=== PATIENT | male | born 1935 | race Two or more races ===

== ENCOUNTER → 2017-11-08 | Outpatient (CLI) | payer MEDICARE, OTHER ==
[~2017-11-08] MED LIST: ELMIRON PO; Ex-Lax15 MG PO; Flonase 0.05% N16 GM; HYDACE7.5 PO; LOSA25; OXYACE5T PO; PRED20 PO; SIMV40 PO; VICODIN ES 7.51 EACH PO
== END | disposition home or self-care (01) ==
LOC: PLD 13:30 → LAB SHORT 13:30
DX: L90.5 Scar conditions and fibrosis of skin (principal); L57.8 Other skin changes due to chronic exposure to nonionizing radiation; C44.42 Squamous cell carcinoma of skin of scalp and neck
CPT/HCPCS: 88305

== ENCOUNTER 2018-03-30 07:48 | Day surgery (SDC) | payer MEDICARE, OTHER ==
[~2018-03-30] VITALS: Ht 175.3 cm; Wt 91.5 kg
== END 2018-03-30 09:22 | disposition home or self-care (01) ==
LOC: ORSCSDS 07:48
PROVIDERS: Anesthesiology
PROC: 3E0R33Z Introduction of Anti-inflammatory into Spinal Canal, Percutaneous Approach (ICD-10-PCS; principal; 2018-03-30 09:00)
DX: M96.1 Postlaminectomy syndrome, not elsewhere classified (principal); M54.16 Radiculopathy, lumbar region; I10 Essential (primary) hypertension; E78.00 Pure hypercholesterolemia, unspecified; G47.33 Obstructive sleep apnea (adult) (pediatric); M06.9 Rheumatoid arthritis, unspecified; Z79.899 Other long term (current) drug therapy
CPT/HCPCS: J1040

== ENCOUNTER 2019-01-03 09:07 | Day surgery (SDC) | payer MEDICARE, OTHER ==
[~2019-01-03] VITALS: Ht 175.3 cm; Wt 91.6 kg
[~2019-01-03 09:07] MED LIST changes: +GABA100 PO; -LOSA25; +LOSA25 PO
--- NOTE | 2019-01-03 11:26 | NUR ---
01/03/19 1126 Mike Hoyt NURSE ASSISTED PATIENT WALK OUT TO HIS RIDE HOME.
== END 2019-01-03 11:18 | disposition home or self-care (01) ==
LOC: ORSCSDS 09:07
PROVIDERS: Internal Medicine Gastroenterology
PROC: 0DBL8ZX Excision of Transverse Colon, Via Natural or Artificial Opening Endoscopic, Diagnostic (ICD-10-PCS; principal; 2019-01-03 10:15)
PROC: 0DBH8ZX Excision of Cecum, Via Natural or Artificial Opening Endoscopic, Diagnostic (ICD-10-PCS; principal; 2019-01-03 10:15)
PROC: 0DBC8ZX Excision of Ileocecal Valve, Via Natural or Artificial Opening Endoscopic, Diagnostic (ICD-10-PCS; principal; 2019-01-03 10:15)
DX: Z12.11 Encounter for screening for malignant neoplasm of colon (principal); D12.0 Benign neoplasm of cecum; D12.3 Benign neoplasm of transverse colon; Z86.010 Personal history of colon polyps; K57.30 Diverticulosis of large intestine without perforation or abscess without bleeding; G47.33 Obstructive sleep apnea (adult) (pediatric); E78.5 Hyperlipidemia, unspecified; E66.9 Obesity, unspecified; Z87.891 Personal history of nicotine dependence; Z68.31 Body mass index [BMI] 31.0-31.9, adult; Z79.899 Other long term (current) drug therapy
CPT/HCPCS: 85014; 88305; J7120

== ENCOUNTER 2019-02-16 13:28 | Emergency (ER) | payer MEDICARE, OTHER ==
[~2019-02-16] VITALS: Ht 167.6 cm; Wt 90.7 kg
[2019-02-16] MEDS ORDERED: GABA100 PO (15:09)
[2019-02-16] MEDS ORDERED: LOSA25 PO (15:10)
[2019-02-16] MEDS ORDERED: CEPH500 PO (15:56)
== END 2019-02-16 16:16 | disposition home or self-care (01) ==
LOC: ER 13:28
DX: S51.811A Laceration without foreign body of right forearm, initial encounter (principal); S46.211A Strain of muscle, fascia and tendon of other parts of biceps, right arm, initial encounter; W22.8XXA Striking against or struck by other objects, initial encounter; Z88.8 Allergy status to other drugs, medicaments and biological substances; Z88.1 Allergy status to other antibiotic agents; Z79.899 Other long term (current) drug therapy
CPT/HCPCS: 71101; 99283-25

== ENCOUNTER 2019-04-02 06:54 | Emergency (ER) | payer MEDICARE, OTHER ==
[~2019-04-02] VITALS: Ht 175.3 cm; Wt 90.7 kg
[~2019-04-02 06:54] MED LIST changes: +CEPH500 PO
[2019-04-02] MEDS ORDERED: LOSARTAN POTASS50 MG PO (07:34)
[2019-04-02] MEDS ORDERED: OMEPRAZOLE20 MG PO (07:35)
[2019-04-02] MEDS ORDERED: Robaxin500 MG PO (09:07)
== END 2019-04-02 10:00 | disposition home or self-care (01) ==
LOC: ER 06:54
DX: S22.31XA Fracture of one rib, right side, initial encounter for closed fracture (principal); W01.198A Fall on same level from slipping, tripping and stumbling with subsequent striking against other object, initial encounter; Z88.8 Allergy status to other drugs, medicaments and biological substances; Z88.1 Allergy status to other antibiotic agents; Z79.899 Other long term (current) drug therapy
CPT/HCPCS: 71101; 99283-25

== ENCOUNTER → 2019-08-02 | Outpatient (CLI) | payer MEDICARE, OTHER ==
[~2019-08-02] MED LIST changes: +LOSARTAN POTASS50 MG PO; +OMEPRAZOLE20 MG PO; +Robaxin500 MG PO
== END | disposition home or self-care (01) ==
LOC: LAB SHORT 07:34 → PLD 07:34
DX: D48.5 Neoplasm of uncertain behavior of skin (principal)
CPT/HCPCS: 88305

== ENCOUNTER 2019-10-11 07:01 | Day surgery (SDC) | payer MEDICARE, OTHER ==
[~2019-10-11] VITALS: Ht 175.3 cm; Wt 98.2 kg
== END 2019-10-11 08:10 | disposition home or self-care (01) ==
LOC: ORSCSDS 07:01
PROVIDERS: Anesthesiology
PROC: 3E0R33Z Introduction of Anti-inflammatory into Spinal Canal, Percutaneous Approach (ICD-10-PCS; principal; 2019-10-11 08:00)
DX: M96.1 Postlaminectomy syndrome, not elsewhere classified (principal); M54.16 Radiculopathy, lumbar region; I10 Essential (primary) hypertension; G47.33 Obstructive sleep apnea (adult) (pediatric); E78.00 Pure hypercholesterolemia, unspecified; M06.9 Rheumatoid arthritis, unspecified; Z79.899 Other long term (current) drug therapy
CPT/HCPCS: J1040

== ENCOUNTER 2019-11-08 08:22 | Day surgery (SDC) | payer MEDICARE, OTHER ==
[~2019-11-08] VITALS: Ht 175.3 cm; Wt 93.5 kg
== END 2019-11-08 09:49 | disposition home or self-care (01) ==
LOC: ORSCSDS 08:22
PROVIDERS: Anesthesiology
PROC: 3E0R33Z Introduction of Anti-inflammatory into Spinal Canal, Percutaneous Approach (ICD-10-PCS; principal; 2019-11-08 09:15)
DX: M96.1 Postlaminectomy syndrome, not elsewhere classified (principal); M54.16 Radiculopathy, lumbar region; G47.33 Obstructive sleep apnea (adult) (pediatric); I10 Essential (primary) hypertension; E78.00 Pure hypercholesterolemia, unspecified; M06.9 Rheumatoid arthritis, unspecified; E66.9 Obesity, unspecified; Z68.30 Body mass index [BMI] 30.0-30.9, adult; Z79.899 Other long term (current) drug therapy
CPT/HCPCS: J1040

== ENCOUNTER 2020-08-06 11:08 | Day surgery (SDC) | payer MEDICARE, OTHER ==
[~2020-08-06] VITALS: Wt 92.4 kg
[~2020-08-06 11:08] MED LIST changes: +LOSA50 PO; +Norco 7.5-3251 EACH PO; +Zocor40 MG PO
== END 2020-08-06 12:15 | disposition home or self-care (01) ==
LOC: ORSCSDS 11:08
PROVIDERS: Anesthesiology
PROC: 3E0R33Z Introduction of Anti-inflammatory into Spinal Canal, Percutaneous Approach (ICD-10-PCS; principal; 2020-08-06 12:15)
DX: M54.16 Radiculopathy, lumbar region (principal); G47.33 Obstructive sleep apnea (adult) (pediatric); I10 Essential (primary) hypertension; E78.00 Pure hypercholesterolemia, unspecified; Z79.899 Other long term (current) drug therapy
CPT/HCPCS: J1040; J2001

== ENCOUNTER → 2021-08-13 | Outpatient (CLI) | payer MEDICARE, OTHER | LOC: LAB SHORT 11:31 → LAB 11:31 | DX: D48.5 Neoplasm of uncertain behavior of skin (principal); D04.72 Carcinoma in situ of skin of left lower limb, including hip; Z88.8 Allergy status to other drugs, medicaments and biological substances | CPT/HCPCS: 88305 ==

== ENCOUNTER 2021-11-09 09:52 | Day surgery (SDC) | payer MEDICARE, OTHER ==
[~2021-11-09] VITALS: Ht 175.3 cm; Wt 94.1 kg
== END 2021-11-09 11:42 | disposition home or self-care (01) ==
LOC: ORSCSDS 09:52
PROVIDERS: Anesthesiology
PROC: 3E0R33Z Introduction of Anti-inflammatory into Spinal Canal, Percutaneous Approach (ICD-10-PCS; principal; 2021-11-09 11:00)
DX: M96.1 Postlaminectomy syndrome, not elsewhere classified (principal); M54.16 Radiculopathy, lumbar region; I10 Essential (primary) hypertension; E78.00 Pure hypercholesterolemia, unspecified; G47.33 Obstructive sleep apnea (adult) (pediatric); M06.9 Rheumatoid arthritis, unspecified; Z79.899 Other long term (current) drug therapy
CPT/HCPCS: J1040

== ENCOUNTER 2022-06-07 12:17 | Day surgery (SDC) | payer MEDICARE, OTHER ==
[~2022-06-07] VITALS: Ht 175.3 cm; Wt 91.4 kg
== END 2022-06-07 14:20 | disposition home or self-care (01) ==
LOC: ORSCSDS 12:17
PROVIDERS: Anesthesiology
PROC: 3E0R33Z Introduction of Anti-inflammatory into Spinal Canal, Percutaneous Approach (ICD-10-PCS; principal; 2022-06-07 14:15)
DX: M96.1 Postlaminectomy syndrome, not elsewhere classified (principal); M54.16 Radiculopathy, lumbar region; G47.33 Obstructive sleep apnea (adult) (pediatric); E78.00 Pure hypercholesterolemia, unspecified; I10 Essential (primary) hypertension; Z79.899 Other long term (current) drug therapy
CPT/HCPCS: J1040

== ENCOUNTER 2022-07-14 13:22 | Day surgery (SDC) | payer MEDICARE, OTHER ==
[~2022-07-14] VITALS: Ht 177.8 cm; Wt 93.1 kg
== END 2022-07-14 14:38 | disposition home or self-care (01) ==
LOC: ORSCSDS 13:22
PROVIDERS: Anesthesiology
PROC: 3E0R33Z Introduction of Anti-inflammatory into Spinal Canal, Percutaneous Approach (ICD-10-PCS; principal; 2022-07-14 15:00)
DX: M54.16 Radiculopathy, lumbar region (principal); G47.33 Obstructive sleep apnea (adult) (pediatric); E78.00 Pure hypercholesterolemia, unspecified; I10 Essential (primary) hypertension; M06.9 Rheumatoid arthritis, unspecified; Z79.899 Other long term (current) drug therapy
CPT/HCPCS: J1040

== ENCOUNTER 2023-03-10 16:51 | Inpatient (IN) | payer MEDICARE, OTHER ==
[~2023-03-10] VITALS: Ht 175.3 cm; Wt 86.3 kg
[~2023-03-10 16:51] MED LIST changes: +CEFD300 PO; +CELEBREX200 MG PO; +CYCL10 PO; +OMEPRAZOLE20 M1 PO
[2023-03-10 17:48] LABS: BASOPHILS ABSOLUTE AUTO 0.03 K/mm3 (0.00-0.23); BASOPHILS PERCENT AUTO 0 % (0-2); EOSINOPHILS ABSOLUTE AUTO 0.03 K/mm3 (0.00-0.68); EOSINOPHILS PERCENT AUTO 0 % (0-6); Hematocrit 32.8 % (37.0-53.0); Hemoglobin 10.5 g/dL (13.5-17.5); IMMATURE GRAN ABSOLUTE AUTO 0.15 K/mm3 (0.00-0.10); IMMATURE GRAN PERCENT AUTO 1 % (0-1); LYMPHOCYTES ABSOLUTE AUTO 2.09 K/mm3 (0.84-5.20); LYMPHOCYTES PERCENT AUTO 13 % (21-46); MONOCYTES ABSOLUTE AUTO 1.53 K/mm3 (0.16-1.47); MONOCYTES PERCENT AUTO 9 % (4-13); Mean Corpuscular HGB 29.9 pg (26.0-34.0); Mean Corpuscular Volume 93 fL (80-100); Mean Platelet Volume 9.8 fL (9.1-12.4); NEUTROPHILS ABSOLUTE AUTO 12.74 K/mm3 (1.96-9.15); NEUTROPHILS PERCENT AUTO 77 % (41-73); NRBC ABSOLUTE 0.03 K/mm3 (0.00-0.02); NRBC Auto 0.2 /100 WBC (0.0-0.2); Platelet Count 291 K/mm3 (150-400); RDW Coefficient Variation 18.7 % (11.7-14.2); RDW Standard Deviation 63.5 fL (35.1-46.3); Red Blood Cell Count 3.51 M/mm3 (4.30-5.90); White Blood Cell Count 16.57 K/mm3 (4.00-11.30)
[2023-03-10 18:19] LABS: Albumin, Blood 2.4 g/dL (3.4-5.0); Albumin/Globulin Ratio 0.5 (0.8-1.8); Bilirubin, Total 0.8 mg/dL (0.1-1.0); Bun/Creatinine Ratio 25.1 (12.0-20.0); Calcium, Blood 8.5 mg/dL (8.5-10.1); Creatinine, Blood 0.88 mg/dL (0.60-1.20); Globulin, Blood 4.5 g/dL (2.2-4.0); Potassium, Blood 4.5 mmol/L (3.5-5.5); Total Protein, Blood 6.9 g/dL (6.4-8.2)
[2023-03-11 00:54] VITALS: BP 149/56
[2023-03-11 05:44] LABS: BASOPHILS ABSOLUTE AUTO 0.03 K/mm3 (0.00-0.23); BASOPHILS PERCENT AUTO 0 % (0-2); EOSINOPHILS ABSOLUTE AUTO 0.01 K/mm3 (0.00-0.68); EOSINOPHILS PERCENT AUTO 0 % (0-6); Hematocrit 29.4 % (37.0-53.0); Hemoglobin 9.4 g/dL (13.5-17.5); IMMATURE GRAN ABSOLUTE AUTO 0.12 K/mm3 (0.00-0.10); IMMATURE GRAN PERCENT AUTO 1 % (0-1); LYMPHOCYTES ABSOLUTE AUTO 2.04 K/mm3 (0.84-5.20); LYMPHOCYTES PERCENT AUTO 14 % (21-46); MONOCYTES ABSOLUTE AUTO 1.56 K/mm3 (0.16-1.47); MONOCYTES PERCENT AUTO 11 % (4-13); Mean Corpuscular HGB 30.2 pg (26.0-34.0); Mean Corpuscular Volume 95 fL (80-100); Mean Platelet Volume 10.8 fL (9.1-12.4); NEUTROPHILS ABSOLUTE AUTO 11.13 K/mm3 (1.96-9.15); NEUTROPHILS PERCENT AUTO 75 % (41-73); NRBC ABSOLUTE 0.02 K/mm3 (0.00-0.02); NRBC Auto 0.1 /100 WBC (0.0-0.2); Platelet Count 230 K/mm3 (150-400); RDW Coefficient Variation 18.9 % (11.7-14.2); RDW Standard Deviation 64.9 fL (35.1-46.3); Red Blood Cell Count 3.11 M/mm3 (4.30-5.90); White Blood Cell Count 14.89 K/mm3 (4.00-11.30)
[2023-03-11 06:08] LABS: Albumin, Blood 1.9 g/dL (3.4-5.0); Albumin/Globulin Ratio 0.5 (0.8-1.8); Bilirubin, Total 0.6 mg/dL (0.1-1.0); Bun/Creatinine Ratio 21.9 (12.0-20.0); Creatinine, Blood 0.82 mg/dL (0.60-1.20); Globulin, Blood 4.1 g/dL (2.2-4.0); Potassium, Blood 4.7 mmol/L (3.5-5.5)
[2023-03-11 06:29] LABS: Source, Urine Clean Catch
[2023-03-11 06:43] LABS: Appearance, Urine Clear (Clear); Bilirubin, Urine Neg (Neg); Blood, Urine 1+ (Neg); Color, Urine Yellow (P-Yellow); Glucose Qualitative, Urine Neg (Neg); Ketones, Urine Neg (Neg); Leukocyte Esterase, Urine Neg (Neg); Nitrite, Urine Neg (Neg); Protein, Urine Neg (Neg); Specific Gravity, Urine 1.015 (1.003-1.022); Urobilinogen, Urine NORM (Normal)
[2023-03-11 06:54] LABS: Bacteria Not Seen /hpf; Red Blood Cells, Urine 0-2 /hpf (0-2); Squamous Epithelial Cells Few /hpf (Few); White Blood Cells, Urine 0-2 /hpf (0-5)
[2023-03-11 07:35] VITALS: BP 136/56
[2023-03-11 13:49] LABS: International Normalized Ratio 1.15
[2023-03-11 15:52] VITALS: BP 146/56
--- NOTE | 2023-03-11 17:23 | NUR ---
SHIFT SUMMARY- NO ACUTE EVENTS THIS SHIFT. PT AAOX3-4. SBA. MILD BACK CARI NCONTROLLED WITH TYLENOL.
[2023-03-11 19:29] VITALS: BP 160/54
--- NOTE | 2023-03-12 00:47 | NUR ---
START OF SHIFT THIS STUDENT NURSE ASSUMED CARE OF PT AT 1900 UNDER THE OBSERVATION OF NURSE ELMER BUENO. PT DAUGHTER AT BEDSIDE. PT A&O X4. BP ELEVATED, WILL MONITOR FOR S/S. REMAINING VS WNL. PT'S LOWER LUNG CROUCH DIMINISHED. ORDERED ANTIBIOTICS ADMINISTERED VIA IV INFUSION, PT REPORTS NAUSEA WITH ADMINISTRATION OF AZITHROMYCIN. IV ZOFRAN ADMINISTERED, INTERVENTION SUCCESSFUL EVIDENCED BY THE PT'S VERBALIZTION OF DECREASED NAUSEA. PT LEFT IN A STATE OF COMFORT AND SAFETY WITH BED IN LOW POSITION, BREAKS LOCKED, ROOM CLEAR OF DEBRIS, BED RAILS RAISED, AND CALL LIGHT WITHIN REACH. WILL CONTINUE TO MONITOR.
--- NOTE | 2023-03-12 04:43 | NUR ---
SHIFT SUMMARY THIS STUDENT NURSE ADRESSED THE PT'S PNEUMONIA BY ADMINISTERING THE PRESCRIBED ANTIBIOTICS AND ASSESSING FOR S/S OF WORSENING INFECTION. THIS STUDENT NURSE ADDRESSED THE PT'S NAUSEA FOLLOWING ADMINISTRATION OF AZITHROMYCIN BY ADMINISTERING THE PRESCRIBED ZOFRAN. PT AMBULATED WITH STANDBY ASSISTANCE, CONTINENT WITH URINAL AT BEDSIDE. PT A&O X4. PT VSS. PT SLEPT THROUGH SHIFT AFTER ANTIBIOTICS INFUSIONS COMPLETED. PT'S PAIN MANAGED THROUGHOUT THE SHIFT UTELIZING PHARMACOLOGICAL AND NONPHARMACOLOGICAL INTERVENTIONS. PT REMAINS IN A POSITION OF COMFORT AND SAFETY. WILL CONTINUE TO MONITOR PT THROUGHOUT MY SHIFT.
[2023-03-12 04:44] VITALS: BP 136/57
[2023-03-12 05:11] LABS: Hemoglobin 8.8 g/dL (13.5-17.5); Mean Corpuscular HGB 30.7 pg (26.0-34.0); Mean Corpuscular HGB Conc 32.6 g/dL (31.5-36.5); Mean Corpuscular Volume 94 fL (80-100); Platelet Count 232 K/mm3 (150-400); RDW Coefficient Variation 18.8 % (11.7-14.2); RDW Standard Deviation 65.3 fL (35.1-46.3); Red Blood Cell Count 2.87 M/mm3 (4.30-5.90); White Blood Cell Count 10.95 K/mm3 (4.00-11.30)
[2023-03-12 05:43] LABS: Percent Saturation 11.6 % (20.0-50.0)
--- NOTE | 2023-03-12 05:58 | NUR ---
CTA/PLUMBER MAINTENANCE I HAVE READ THIS PLUMBER MAINTENANCE'S DOCUMENTATION AND I AGREE. SHIFT SUMMARY LOCATED UNDER PLUMBER MAINTENANCE NOTE
[2023-03-12 07:09] VITALS: BP 139/54
--- NOTE | 2023-03-12 08:56 | NUR ---
pt laying in bed awake a/ox4, pleasant and cooperative with care, follows commands well, denies pain at this time, lungs are clear on left side all mar, can auscultate breath sounds in upper mar dim in mid and base, no cough noted, on 2 liters at hs, not during the day, hrr, ppp+2, cap refill <3sec, vs stable, afebrile, piv to rac site is clear and patent, btx4, reports reg bm and voids, skin c/w/d, li, shaun, call light in reach.
[2023-03-12 13:30] LABS: Automated BF RBC Count 0.022 M/mm3 (0-0)
[2023-03-12 13:46] LABS: Protein, Body Fluid 4.4 g/dL
[2023-03-12 13:58] LABS: RBC Count, Body Fluid 22000 /mm3 (0-0)
[2023-03-12 13:59] LABS: Body Fluid WBC Count 30930 /mm3 (0-999)
[2023-03-12 14:04] LABS: Appearance, Body Fluid Cloudy (Clear); Color, Body Fluid Yellow (None-Yellow)
[2023-03-12 14:11] LABS: Total Cell Count, Body Fluid 100
[2023-03-12 15:16] VITALS: BP 152/64
--- NOTE | 2023-03-12 18:49 | NUR ---
pt has had some nausia today, Dr. Ratliff changed the abx, jono given, having MRI at this time, family in to see him, has had bad back pain after thorocentesis. no further changes this shift. call light in reach.
[2023-03-12 19:39] VITALS: BP 161/65
[2023-03-13 03:50] VITALS: BP 157/60
--- NOTE | 2023-03-13 04:24 | NUR ---
SHIFT SUMMARY ADMITTED FOR BACK PAIN/PNEUMONIA. FULL CODE. PO ANTIB RX ARE SCHEDULED. MRI OF THE BACK PERFORMED AT BEGINNING OF SHIFT. I DID MEDICATE FOR BACK PAIN AND NAUSEA ONE TIME THIS SHIFT. THORACENTESIS PERFORMED ON PREVIOUS SHIFT WITH REPORTEDLY LITTLE EFFECT. 2 LPM O2 @ HS, PRN IS BASELINE HE IS NONCOMPLIANT WITH BIPAP. HX: CHRONIC BACK PAIN, CAMILA, FAILED OUTPT ANTIB AND STEROID RX TX.
[2023-03-13 07:25] VITALS: BP 143/47
--- NOTE | 2023-03-13 08:35 | NUR ---
pt laying in bed awake, states he had a rough night with his stomach hurting and nausea not vomiting. a/ox4, pleasant and cooperative with care, follows commands well, reports back pain and stomach pain as well, states the norco isn't enough for the back pain, but because he is nauseated he wants to hold off on the pain pill, lungs are dim on right side clear on left, on r/a, resp even and unlabored, no cough noted, using 2 liters 02 at hs, on r/a now, hrr, no edema noted, ppp+1, cap refill<3sec, vs stable, afebrile, iv site to rac is hurting a bit with use, will replace today, zofran administred, btx4, abd flat soft tender, voids without diff, skin c/w/d, shaun jefferson, call light in reach.
[2023-03-13 15:05] VITALS: BP 145/60
--- NOTE | 2023-03-13 18:03 | NUR ---
pt started the day not doing well, medications were changed, and added a muscle relaxant, he ambulated out in the [place] and states he's feeling much better, much more relaxed, no further changes this shift. call light in reach.
[2023-03-13 19:53] VITALS: BP 147/51
[2023-03-14 04:08] VITALS: BP 144/61
--- NOTE | 2023-03-14 04:27 | NUR ---
DISPLAY DESIGNER SUMMARY NO ACUTE EVENTS THIS SHIFT. A&OX4 WITH TRANSIENT CONFUSION. PATIENT EFFECTIVELY COMMUNICATES NEEDS. VSS. RR EVEN AND UNLABORED ON RA. PAIN ASSESSED AND MEDICATED PER EMAR. PATIENT NOTED TO SLEEP WELL THROUGHOUT THE NIGHT WITH MINIMAL CONCERNS. BED LOW AND LOCKED. CALL LIGHT WITHIN REACH. THIS RN WILL CONTINUE TO MONITOR.
[2023-03-14 05:43] LABS: Hematocrit 28.9 % (37.0-53.0); Hemoglobin 9.2 g/dL (13.5-17.5); Mean Corpuscular HGB 29.7 pg (26.0-34.0); Mean Corpuscular HGB Conc 31.8 g/dL (31.5-36.5); Mean Corpuscular Volume 93 fL (80-100); Mean Platelet Volume 9.7 fL (9.1-12.4); NRBC ABSOLUTE 0.02 K/mm3 (0.00-0.02); NRBC Auto 0.3 /100 WBC (0.0-0.2); Platelet Count 256 K/mm3 (150-400); RDW Coefficient Variation 18.3 % (11.7-14.2); RDW Standard Deviation 63.2 fL (35.1-46.3); White Blood Cell Count 7.82 K/mm3 (4.00-11.30)
[2023-03-14 06:20] LABS: Bun/Creatinine Ratio 23.4 (12.0-20.0); Creatinine, Blood 0.9 mg/dL (0.60-1.20); Potassium, Blood 4.5 mmol/L (3.5-5.5)
[2023-03-14 07:51] VITALS: BP 141/60
--- NOTE | 2023-03-14 09:00 | NUR ---
PT QUITE PLEASANT COOP TALKATIVE, A/O X3. DENIES PAIN AT THIS TIME. H/R REG, NO MURMUR NOTED. NO EDEMA NOTED. LUNGS CLEAR ON LEFT, DIM ON LOW RIGHT. ON R/A DAYS, 2L N/C AT NITE FOR CAMILA. BT X4 LAST BM COUPLE DAYS PER PT, STATES FEELS READY TODAY. VOIDS URINAL AND 1 ASST OR SBA TO BATHROOM. NO NEW CONCERNS NOTED. BED IN LOW POSITION, CALL LITE IN REACH, CALLS APPROP
[2023-03-14 14:49] VITALS: BP 145/55
--- NOTE | 2023-03-14 18:38 | NUR ---
PT QUITE PLEASANT TODAY. EXPECTING TO WAIT FOR RESULTS OF SAMPLE TO GROW OUT TOMORROW. HOPING TO FIND APPROP ABX TO RESOLVE. STATES WILL BE ASKING DR FOR BEST COARSE OF ACTION FOR LUNG TO HEAL. CONTINUES TO AMBULATE SBA APPROP. FAMILY IN TO SEE TODAY. NO NEW CONCERNS NOTED. BED IN LOW POSITION, CALLLITE IN REACH, CALLS APPROP
[2023-03-14 19:55] VITALS: BP 151/56
[2023-03-15 03:11] VITALS: BP 122/73
--- NOTE | 2023-03-15 04:15 | NUR ---
PRIVATE PILOT SUMMARY NO ACUTE EVENTS THIS SHIFT. A&OX4. PATIENT EFFECTIVELY COMMUNICATES NEEDS. VSS. RR EVEN AND UNLABORED AT REST. EXERTIONAL DYSPNEA NOTED. PAIN ASSESSED AND MEDICATED PER EMAR. PATIENT NOTED TO SLEEP WELL THROUGHOUT THE NIGHT. BED LOW AND LOCKED. CALL LIGHT WITHIN REACH. THIS RN WILL CONTINUE TO MONITOR.
[2023-03-15 08:50] VITALS: BP 149/55
[2023-03-15] MEDS ORDERED: OXYC5 PO (11:34)
[2023-03-15] MEDS ORDERED: AMOX875 PO (11:35)
--- NOTE | 2023-03-15 12:24 | NUR ---
DC- PT LEFT IN WC WITH IN STABLE CONDITION WITH ALL BELONGINGS.
== END 2023-03-15 12:01 | disposition home or self-care (01) | DRG 871 ==
LOC: ER 16:51 → MEDS 16:52 → ENPENDDIS 03-15 10:38 → MEDS 03-15 12:01
PROVIDERS: Internal Medicine; Physician Assistant; Student in an Organized Health Care Education/Training Program; ADMIT Internal Medicine
PROC: 0W9930Z Drainage of Right Pleural Cavity with Drainage Device, Percutaneous Approach (ICD-10-PCS; principal; 2023-03-12)
DX: A41.9 Sepsis, unspecified organism (principal); J18.9 Pneumonia, unspecified organism; J90 Pleural effusion, not elsewhere classified; J98.11 Atelectasis; E78.5 Hyperlipidemia, unspecified; N40.0 Benign prostatic hyperplasia without lower urinary tract symptoms; M45.9 Ankylosing spondylitis of unspecified sites in spine; G47.31 Primary central sleep apnea; M48.061 Spinal stenosis, lumbar region without neurogenic claudication; R77.8 Other specified abnormalities of plasma proteins; G89.29 Other chronic pain; M25.519 Pain in unspecified shoulder; L71.9 Rosacea, unspecified; D63.8 Anemia in other chronic diseases classified elsewhere; M06.9 Rheumatoid arthritis, unspecified; I35.1 Nonrheumatic aortic (valve) insufficiency; M54.9 Dorsalgia, unspecified; Z96.651 Presence of right artificial knee joint; Z88.1 Allergy status to other antibiotic agents; Z88.8 Allergy status to other drugs, medicaments and biological substances; Z98.890 Other specified postprocedural states; Z90.49 Acquired absence of other specified parts of digestive tract; Z99.89 Dependence on other enabling machines and devices; Z79.2 Long term (current) use of antibiotics; Z79.891 Long term (current) use of opiate analgesic; Z79.899 Other long term (current) drug therapy
CPT/HCPCS: 32555; 36415; 71045; 71046; 71275; 72148; 80048; 80053; 81001; 82728; 83540; 83550; 83605; 84145; 84157; 85025; 85027; 85379; 85610; 85730; 87040; 87070; 87205; 88108; 88305; 89051; 93005; 93010; 94664; 94760; 96365; 96367; 96375; 99285-25; A9270; J0456; J0692; J1650; J2405; J7050; Q9967

== ENCOUNTER 2023-09-16 13:13 | Day surgery (SDC) | payer MEDICARE, OTHER ==
[~2023-09-16] VITALS: Ht 175.3 cm; Wt 87.1 kg
[~2023-09-16 13:13] MED LIST changes: +AMOX875 PO; +OXYC5 PO
[2023-09-16] MEDS ORDERED: Simvastatin40 MG PO (13:39)
--- NOTE | 2023-09-16 15:13 | NUR ---
09/16/23 1513 SHARON COLEY BANDAGE ON LOW/MID BACK. CLEAN,DRY, INTACT. DENIES PAIN.
[2023-09-16 15:16] VITALS: BP 184/66
== END 2023-09-16 15:24 | disposition home or self-care (01) ==
LOC: ORSCSDS 13:13
PROVIDERS: Anesthesiology
PROC: 3E0R33Z Introduction of Anti-inflammatory into Spinal Canal, Percutaneous Approach (ICD-10-PCS; principal; 2023-09-16 14:15)
PROC: 3E0R3BZ Introduction of Anesthetic Agent into Spinal Canal, Percutaneous Approach (ICD-10-PCS; principal; 2023-09-16 14:15)
DX: M54.16 Radiculopathy, lumbar region (principal); M96.1 Postlaminectomy syndrome, not elsewhere classified; E78.00 Pure hypercholesterolemia, unspecified; I10 Essential (primary) hypertension; G47.33 Obstructive sleep apnea (adult) (pediatric); Z79.899 Other long term (current) drug therapy
CPT/HCPCS: J1040

== ENCOUNTER → 2024-07-02 | Outpatient (CLI) | payer MEDICARE, OTHER ==
[~2024-07-02] MED LIST changes: +HYDR1TAB94 PO; +Simvastatin40 MG PO
== END ==
LOC: LAB SHORT 17:05 → LAB 17:05
DX: R35.0 Frequency of micturition (principal)
CPT/HCPCS: 87086

== ENCOUNTER 2025-01-08 08:30 | Day surgery (SDC) | payer MEDICARE, OTHER ==
[~2025-01-08] VITALS: Ht 175.3 cm; Wt 86.6 kg
[2025-01-08] VITALS (13 sets, daily range): BP systolic 129–164; BP diastolic 67–106
[~2025-01-08 08:30] MED LIST changes: +1/2 NS 250ml250 ML; +ACETAMINOPHEN PO; +Aspir 8181 MG PO; +CODEINE PO; +ELIQUIS5 M2 PO; +METO25 PO; +NITR.4SL SL; +ROSUVASTATIN CA20 MG PO
--- NOTE | 2025-01-08 10:15 | NUR ---
PT LAYING UP IN BED TALKING WITH DAUGHTER. CALL LIGHT IN REACH. PT STATES HE LAST ATE LAST NIGHT.
[2025-01-08] MEDS ORDERED: NS 2,000 ML IV ONE (11:14)
[2025-01-08] MEDS ORDERED: Heparin Sodium 1000 Units/ML 10ML MDV ONE (11:14)
[2025-01-08] MEDS ORDERED: Verapamil HCL 2.5 MG/ML 2ML Injection ONE (11:14)
[2025-01-08] MEDS ORDERED: NS 1,000 ML IV ONE (11:21)
[2025-01-08] MEDS ORDERED: Midazolam HCl 1MG / ML 2ML Vial ONE (11:59)
[2025-01-08] MEDS ORDERED: FentaNYL Citrate 50 MCG/ML 2 ML Injection ONE (11:59)
--- NOTE | 2025-01-08 13:09 | NUR ---
PT ARRIVED BACK TO RECOVERY ROOM IN RECLINER. R RADIAL TR BAND SITE SOFT NON-TENDER WITH NO HEMATOMA, NO PULSATILE BLEEDING AND RIGHT WRIST BOARD IN PLACE. PT STATES "SORENESS" IN RIGHT AC AREA, BUT BETTER WHEN HE MOVES HIS ARM. DR HURTADO IN ROOM TO SEE PT AND HIS DAUGHTER. CALL LIGHT IN REACH. PT DENIES CHEST PAIN. PT DRINKING WATER.
--- NOTE | 2025-01-08 13:35 | NUR ---
NO CHANGES TO R RRAD TR BAND SITE. R AC SITE LESS SORE. PT EATING LUMCH. PT'S DAUGHTER IN ROOM.
--- NOTE | 2025-01-08 14:29 | NUR ---
AT 1415 9 CC OF AIR REMOVED OVER 15 MIN OUT OF NOW DEFLATED R TR BAND SITE. R RAD SITE SOFT NON-TENDER WITH NO HEMATOMA, NO PULSATILE BLEEDING AND WRIST BOARD IN PLACE. DISCHARGE INSTRUCTIONS REVIEWED ALL QUESTIONS ANSWERED.
--- NOTE | 2025-01-08 14:52 | NUR ---
NO CHANGES TO DEFLATED R TR BAND SITE. FULL REPORT PROVIDED ZACKARY RAMOS TO ASSUME CARE OF PT.
--- NOTE | 2025-01-08 15:20 | NUR ---
PT DRESSED SELF WITHOUT ISSUE, SITE UNCHANGED. TR BAND REMOVED, CLOTH DOT AND WRIST IMMOBILIZER PLACED; IV REMOVED-CANNULA INTACT.
--- NOTE | 2025-01-08 15:30 | NUR ---
REVIEWED DISCHARGE INSTRUCTIONS, MED LIST AND AFTER CARE INSTRUCTIONS WITH PT AND DAUGHTER; VERBALIZED GOOD UNDERSTANDING. PT LEFT FACILITY VIA W/C, CONDITION STABLE.
== END 2025-01-08 15:30 | disposition home or self-care (01) ==
LOC: MHTC 08:30
DX: R94.39 Abnormal result of other cardiovascular function study (principal); Z53.8 Procedure and treatment not carried out for other reasons; E78.5 Hyperlipidemia, unspecified; I48.19 Other persistent atrial fibrillation; I10 Essential (primary) hypertension; G47.33 Obstructive sleep apnea (adult) (pediatric); J43.9 Emphysema, unspecified; I08.0 Rheumatic disorders of both mitral and aortic valves; Z88.8 Allergy status to other drugs, medicaments and biological substances; Z79.01 Long term (current) use of anticoagulants; Z79.82 Long term (current) use of aspirin; Z79.899 Other long term (current) drug therapy
CPT/HCPCS: 76937; 93454; 99152; 99153; C1769; C1887; C1894; J1644; J2250; J3010; J7030; Q9967

== ENCOUNTER 2025-01-26 11:01 | Emergency (ER) | payer MEDICARE, OTHER ==
[~2025-01-26] VITALS: Ht 175.3 cm; Wt 81.7 kg
[2025-01-26] MEDS ORDERED: Morphine Sulfate 4 MG/1 ML Injection IM ONE (11:50)
[2025-01-26] MEDS ORDERED: Acetaminophen 500 MG Tab PO ONE (11:50)
[2025-01-26 12:05] VITALS: BP 139/84
[2025-01-26] MEDS ORDERED: HYDROmorphone HCl/Pf 1MG SYR IM ONE (13:15)
[2025-01-26] MEDS ORDERED: Lidocaine 4% 1 Patch TOP ONE (13:15)
[2025-01-26] MEDS ORDERED: ACET500 PO (14:16)
[2025-01-26] MEDS ORDERED: LIDO700A20 TOP (14:16)
== END 2025-01-26 14:46 | disposition home or self-care (01) ==
LOC: ER 11:01
DX: M70.72 Other bursitis of hip, left hip (principal); E78.5 Hyperlipidemia, unspecified; M19.90 Unspecified osteoarthritis, unspecified site; G47.30 Sleep apnea, unspecified; Z79.899 Other long term (current) drug therapy; Z88.1 Allergy status to other antibiotic agents; Z88.8 Allergy status to other drugs, medicaments and biological substances
CPT/HCPCS: 73502; 96372; 99284-25; A9270; J1171; J2270

== ENCOUNTER 2025-05-20 14:09 | Observation (INO) | payer MEDICARE, OTHER ==
[~2025-05-20] VITALS: Ht 175.3 cm; Wt 80.0 kg
[~2025-05-20 14:09] MED LIST changes: +ACET500 PO; +LIDO700A20 TOP
[2025-05-20 16:41] LABS: BASOPHILS ABSOLUTE AUTO 0.03 K/mm3 (0.00-0.23); BASOPHILS PERCENT AUTO 1 % (0-2); EOSINOPHILS ABSOLUTE AUTO 0.07 K/mm3 (0.00-0.68); EOSINOPHILS PERCENT AUTO 1 % (0-6); Hematocrit 36.2 % (37.0-53.0); Hemoglobin 11.7 g/dL (13.5-17.5); IMMATURE GRAN ABSOLUTE AUTO 0.02 K/mm3 (0.00-0.10); IMMATURE GRAN PERCENT AUTO 0 % (0-1); LYMPHOCYTES ABSOLUTE AUTO 2.59 K/mm3 (0.84-5.20); LYMPHOCYTES PERCENT AUTO 42 % (21-46); MONOCYTES ABSOLUTE AUTO 0.61 K/mm3 (0.16-1.47); MONOCYTES PERCENT AUTO 10 % (4-13); Mean Corpuscular HGB Conc 32.3 g/dL (31.5-36.5); Mean Corpuscular Volume 96 fL (80-100); NEUTROPHILS ABSOLUTE AUTO 2.90 K/mm3 (1.96-9.15); NEUTROPHILS PERCENT AUTO 47 % (41-73); NRBC ABSOLUTE 0.02 K/mm3 (0.00-0.02); NRBC Auto 0.3 /100 WBC (0.0-0.2); Platelet Count 182 K/mm3 (150-400); RDW Coefficient Variation 19.9 % (11.7-14.2); RDW Standard Deviation 69.4 fL (35.1-46.3)
[2025-05-20 17:29] LABS: Alanine Aminotransfer (ALT/SGP 19.0 U/L (12-78); Albumin, Blood 3.5 g/dL (3.4-5.0); Albumin/Globulin Ratio 1.0 (0.8-1.8); Anion Gap 7.0 mmol/L (3-11); Aspartate Aminotrans (AST/SGOT 25.0 U/L (12-37); Bilirubin, Total 1.0 mg/dL (0.1-1.0); Blood Urea Nitrogen 20.0 mg/dL (8-24); CO2, Blood 29.0 mmol/L (21-32); Calcium, Blood 9.0 mg/dL (8.5-10.1); Chloride, Blood 105.0 mmol/L (98-108); Creatinine, Blood 1.13 mg/dL (0.60-1.20); Globulin, Blood 3.6 g/dL (2.2-4.0); Glucose, Blood 105.0 mg/dL (70-99); Potassium, Blood 3.8 mmol/L (3.5-5.5); Sodium, Blood 137.0 mmol/L (136-145); Total Protein, Blood 7.1 g/dL (6.4-8.2)
[2025-05-20 17:35] LABS: Source, Urine Clean Catch
[2025-05-20 17:39] LABS: Bilirubin, Urine Neg (Neg); Glucose Qualitative, Urine Neg (Neg); Ketones, Urine Neg (Neg); Leukocyte Esterase, Urine Neg (Neg); Protein, Urine Neg (Neg); Specific Gravity, Urine 1.005 (1.003-1.022); Urobilinogen, Urine NORM (Normal)
[2025-05-20 17:53] LABS: Color, Urine Pale Yellow (P-Yellow)
[2025-05-20 18:59] LABS: pH Blood Venous 7.41 (7.34-7.37)
[2025-05-20] MEDS ORDERED: Ondansetron HCl 2 MG / ML 2ML Vial IV PRN (21:05)
[2025-05-20] MEDS ORDERED: Magnesium Sulf 2 GM/Water 50ML 50 ML IV ONE (21:10)
[2025-05-20 21:31] LABS: Thyroid Stimulating Hormone 1.84 uIU/mL (0.360-4.800)
[2025-05-21 01:02] VITALS: BP 118/60
[2025-05-21 04:21] VITALS: BP 140/59
[2025-05-21 05:25] LABS: Anion Gap 9.0 mmol/L (3-11); Blood Urea Nitrogen 16.0 mg/dL (8-24); CO2, Blood 27.0 mmol/L (21-32); Calcium, Blood 8.5 mg/dL (8.5-10.1); Chloride, Blood 108.0 mmol/L (98-108); Creatinine, Blood 1.08 mg/dL (0.60-1.20); Glucose, Blood 98.0 mg/dL (70-99); Magnesium, Blood 2.2 mg/dL (1.6-2.4); Potassium, Blood 3.6 mmol/L (3.5-5.5); Sodium, Blood 140.0 mmol/L (136-145)
--- NOTE | 2025-05-21 06:49 | NUR ---
SUMMARY ADMITTED LAST NIGHT FROM ED DUE TO CHF EXACERB. A&O X4, COOPERATIVE AND ACCOMPANIED BY DAUGHTER WHO IS HC PROXY. VSS ON RA AND NO SIGN OF DYSPNEA OR DISCOMFORT OF NOW. ABLE TO TOLERATE AMBULATION TO THE BR W/O SUPPORT. QUITE PERSISTENT ON NASAL SPRAY FOR COMFORT AND GIVEN PRIOR TO SLEEP.
[2025-05-21 07:39] VITALS: BP 145/66
--- NOTE | 2025-05-21 08:24 | NUR ---
ASSUMPTION OF CARE: THIS RN ASSUMED CARE OF PATIENT. AWAKE DURING SHIFT CHANGE REPORT; C/O UNCOMFORTABLE BED AND NOT SLEEPING ALL NIGHT. LYING IN BED ON LEFT SIDE FACING DOOR. BREATHING EVEN AND UNLABORED c ROOM AIR. MOST RECENT TELE STRIP IN CHART REVIEWED AND READS SINUS c BBB @ 68. BED IN LOWEST POSITION. CALL LIGHT WITHIN REACH. ACUTE NEEDS MET.
--- NOTE | 2025-05-21 09:30 | NUR ---
THIS RN AND DR AUGUSTINE TO BEDSIDE FOR ROUNDING. FAMILY IN ROOM c PATIENT. QUESTIONS ANSWERED: PLAN, HOME MEDS CONTINUED, AND ETA ECHO. C/O STITCHES IN BACK (TO BE REMOVED TODAY IN OFFICE BUT MISSED APPT). Dx CAMILA c PRN O2 USE @ HOME. EDUCATION PROVIDED R/T CAMILA & AFIB. ESTABLISHED c CARDIOLOGY. PRIMARY PHARMACY: [facility]
[2025-05-21 12:06] VITALS: BP 137/66
[2025-05-21] MEDS ORDERED: FURO20 PO (13:34)
--- NOTE | 2025-05-21 15:47 | NUR ---
DISCHARGE SUMMARY: A&Ox4. PLEASANT AND COOPERATIVE WITH CARE. CALLS APPROPRIATELY AND IS ABLE TO ADVOCATE NEEDS EFFECTIVELY. AMBULATES INDEPENDENTLY. CONTINENT OF BOWEL AND BLADDER; LBM 05/20/25. TAKES MEDS WHOLE c FLUIDS. TELE A-FLUTTER TO SINUS. ECHO COMPLETED. NO CONCERNS AND APPROPRIATE FOR DC PER DR. AUGUSTINE. PATIENT PROVIDED WITH COPY OF DISCHARGE PLAN AND MEDICATION LIST. MED REC FAXED TO ID PHARMACY. INSTRUCTED TO FOLLOW-UP WITH PCP, DERM AND CARDIOLOGY. ALL QUESTIONS ANSWERED TO THIS NURSE'S ABILITY AND PATIENT VOICED UNDERSTANDING OF DISCHARGE PLAN. TELE AND IV REMOVED AND PRESSURE DRESSING PLACED. LEFT FLOOR WITH ALL BELONGINGS AND DISCHARGE PACKET, ESCORTED BY DAUGHTER, PROVIDING TRANSPORTATION.
[2025-05-21] MEDS ORDERED: Saline Nasal Spray 45 ML PRN (23:55)
== END 2025-05-21 14:50 | disposition home or self-care (01) ==
LOC: ER 14:09 → MEDS 14:10
PROVIDERS: Emergency Medicine; Nurse Practitioner Acute Care; ADMIT Student in an Organized Health Care Education/Training Program
DX: I11.0 Hypertensive heart disease with heart failure (principal); I50.31 Acute diastolic (congestive) heart failure; I27.21 Secondary pulmonary arterial hypertension; G47.33 Obstructive sleep apnea (adult) (pediatric); I48.20 Chronic atrial fibrillation, unspecified; J44.9 Chronic obstructive pulmonary disease, unspecified; E78.5 Hyperlipidemia, unspecified; N40.0 Benign prostatic hyperplasia without lower urinary tract symptoms; D64.9 Anemia, unspecified; Z79.01 Long term (current) use of anticoagulants; Z79.899 Other long term (current) drug therapy; Z88.1 Allergy status to other antibiotic agents; Z88.6 Allergy status to analgesic agent; Z88.8 Allergy status to other drugs, medicaments and biological substances
CPT/HCPCS: 36415; 71045; 80048; 80053; 81003; 82803; 83735; 83880; 84443; 84484; 85025; 93005; 93010; 93306; 94760; 96365; 96366; 96375; 99285-25; A9270; G0378; J1938; J3475

== ENCOUNTER 2025-08-08 10:22 | Emergency (ER) | payer MEDICARE, OTHER ==
[~2025-08-08] VITALS: Ht 175.3 cm; Wt 83.9 kg
[~2025-08-08 10:22] MED LIST changes: +FURO20 PO
[2025-08-08 10:56] LABS: BASOPHILS ABSOLUTE AUTO 0.03 K/mm3 (0.00-0.23); BASOPHILS PERCENT AUTO 0 % (0-2); EOSINOPHILS ABSOLUTE AUTO 0.02 K/mm3 (0.00-0.68); EOSINOPHILS PERCENT AUTO 0 % (0-6); Hematocrit 36.9 % (37.0-53.0); Hemoglobin 12.0 g/dL (13.5-17.5); IMMATURE GRAN ABSOLUTE AUTO 0.03 K/mm3 (0.00-0.10); IMMATURE GRAN PERCENT AUTO 0 % (0-1); LYMPHOCYTES ABSOLUTE AUTO 1.43 K/mm3 (0.84-5.20); LYMPHOCYTES PERCENT AUTO 21 % (21-46); MONOCYTES ABSOLUTE AUTO 0.76 K/mm3 (0.16-1.47); MONOCYTES PERCENT AUTO 11 % (4-13); Mean Corpuscular HGB Conc 32.5 g/dL (31.5-36.5); Mean Corpuscular Volume 94 fL (80-100); NEUTROPHILS ABSOLUTE AUTO 4.70 K/mm3 (1.96-9.15); NEUTROPHILS PERCENT AUTO 68 % (41-73); NRBC ABSOLUTE 0.02 K/mm3 (0.00-0.02); NRBC Auto 0.3 /100 WBC (0.0-0.2); Platelet Count 156 K/mm3 (150-400); RDW Coefficient Variation 19.6 % (11.7-14.2); RDW Standard Deviation 68.7 fL (35.1-46.3)
[2025-08-08 11:38] LABS: Anion Gap 8.0 mmol/L (3-11); Blood Urea Nitrogen 23.0 mg/dL (8-24); CO2, Blood 26.0 mmol/L (21-32); Calcium, Blood 8.6 mg/dL (8.5-10.1); Chloride, Blood 106.0 mmol/L (98-108); Creatinine, Blood 1.17 mg/dL (0.60-1.20); Glucose, Blood 143.0 mg/dL (70-99); Magnesium, Blood 2.6 mg/dL (1.6-2.4); Potassium, Blood 4.0 mmol/L (3.5-5.5); Sodium, Blood 136.0 mmol/L (136-145)
[2025-08-08 11:42] LABS: Prothrombin Time Results 12.6 Sec (9.7-11.5)
[2025-08-08] MEDS ORDERED: Morphine Sulfate 4 MG/1 ML Injection IV ONE (12:45)
[2025-08-08 14:58] VITALS: BP 121/78
== END 2025-08-08 14:57 | disposition home or self-care (01) ==
LOC: ER 10:22
PROVIDERS: Emergency Medicine
DX: S20.212A Contusion of left front wall of thorax, initial encounter (principal); J44.9 Chronic obstructive pulmonary disease, unspecified; I48.91 Unspecified atrial fibrillation; I50.9 Heart failure, unspecified; X58.XXXA Exposure to other specified factors, initial encounter
CPT/HCPCS: 71045; 71260; 73201; 80048; 83735; 84484; 85025; 85610; 85730; 93005; 93010; 99285-25; Q9967